=== PATIENT | female | born 1995 | race Caucasian/White ===

== ENCOUNTER 2017-01-26 09:56 | Outpatient (CLI) | payer SELFPAY ==
[2017-01-26 10:11] VITALS: BP 120/80
--- NOTE | 2017-01-26 11:15 | Ultrasound Report ---
ULTRASOUND OB LIMITED History: well being Technique: Transabdominal ultrasound with Doppler interrogation. Gestation: Single Position: Cephalic Amniotic Fluid: Normal IFTIKHAR = 8.8 cm Heart Rate: 142 BPM
--- NOTE | 2017-01-26 11:15 | Ultrasound Report ---
ULTRASOUND BIOPHYSICAL PROFILE: History: well being Technique: Transabdominal ultrasound with Doppler interrogation. 2 - breathing movements 2 - movements 2 - posture and tone 2 - Qualitative amniotic fluid volume 8 - TOTAL SCORE OF POSSIBLE 8 Heart Rate (bpm) 143
== END 2017-01-26 12:18 | disposition home or self-care (01) ==
LOC: TRG 09:56
PROVIDERS: ATTEND Obstetrics & Gynecology
DX: Z34.93 Encounter for supervision of normal pregnancy, unspecified, third trimester (principal); Z3A.39 39 weeks gestation of pregnancy
CPT/HCPCS: 59025; 76815; 76819

== ENCOUNTER 2017-02-01 09:32 | Inpatient (IN) | payer OTHER ==
[2017-02-01 10:50] LABS: Basophils % (Auto) 0.2 % (0.0-1.8); Eosinophils % (Auto) 0.7 % (0.0-4.3); Hematocrit 37.9 % (30.3-42.9); Hemoglobin 12.3 gm/dl (10.1-14.3); Mean Corpuscular HGB Conc 33 % (30-34); Mean Corpuscular Hemoglobin 30 pg (28-32); Mean Corpuscular Volume 93 fl (79-97); Platelet Count 121 K/mm3 (140-440); Red Blood Count 4.07 M/mm3 (3.65-5.03); Red Cell Distribution Width 14.1 % (13.2-15.2); White Blood Count 12.3 K/mm3 (4.5-11.0)
[2017-02-01] MEDS ORDERED: BRETHINE IVP PRN (11:32)
[2017-02-01] MEDS ORDERED: BRETHINE SUB-Q PRN (11:32)
[2017-02-01] MEDS ORDERED: ePHEDrine SULFATE IV PRN (11:32)
[2017-02-01] MEDS ORDERED: MINERAL OIL PO PRN (11:32)
[2017-02-01] MEDS ORDERED: NACL 0.9% 1000 ML 1,000 ML IV SCH (12:00)
[2017-02-01] MEDS ORDERED: PITOCin/NS 20 UNIT/1000ML DRIP 20 UNITS/1,000 ML BAG IV SCH (12:00)
[2017-02-01] MEDS ORDERED: XYLOCAINE 2% INFILTRATI ONE (12:00)
[2017-02-01] MEDS ORDERED: CERVIDIL VG ONE (12:32)
[2017-02-01] MEDS: LACTATED RINGERS 1,000 ML IV SCH ×2 (13:41→23:09)
--- NOTE | 2017-02-01 17:05 | History and Physical Report ---
History of Present Illness Date of examination: 02/01/17 Date of admission: 02/01/17 09:32 Chief complaint: 41 weeks, not in labor. History of present illness: Patient is 21 year old , EDC 01/25/17 at 41 weeks gestation who was admitted for labor induction for post dates. She denied any contraction, fluid leakage or bleeding per vagina. She reported good movement. She receives PN care at [facility]. Past History - Obstetrical History : 1 Medications and Allergies Allergies Allergy/AdvReac Type Severity Reaction Status Date / Time No Known Allergies Allergy Unverified 01/26/17 09:57 Home Medications Medication Instructions Recorded Confirmed Last Taken Type Multivitamin Tablet 1 tab PO DAILY 02/01/17 02/01/17 02/01/17 08:00 History 1 Active Meds: Active Medications Butorphanol Tartrate (Stadol) 2 mg IV Q2H PRN PRN Reason: Pain , Severe (7-10) Ephedrine Sulfate (Ephedrine Sulfate) 10 mg IV Q2M PRN PRN Reason: Hypotension Lactated Ringer's (Lactated Ringers) 1,000 mls @ 125 mls/hr IV DIRECT HUGH Last Admin: 02/01/17 13:41 Dose: 125 mls/hr Oxytocin/Sodium Chloride (Pitocin/Ns 20 Unit/1000ml Drip) 20 units in 1,000 mls @ 125 mls/hr IV DIRECT HUGH Influenza Virus Vaccine Quadrival (Fluarix Quad [id number](36 Mos+) 0.5 ml IM .ONCE ONE Stop: 02/02/17 12:01 Mineral Oil (Mineral Oil) 30 ml PO QHS PRN PRN Reason: Constipation Terbutaline Sulfate (Brethine) 0.25 mg SUB-Q ONCE PRN PRN Reason: Hyperstimulation/Hypertonicity Terbutaline Sulfate (Brethine) 0.25 mg IVP ONCE PRN PRN Reason: Hyperstimulation/Hypertonicity - Vital Signs Vital signs: Vital Signs Pulse BP Pulse Ox 105 H 120/83 100 02/01/17 10:09 02/01/17 10:09 02/01/17 10:09 Temp Pulse Resp BP Pulse Ox 102 H 120/83 100 02/01/17 10:09 02/01/17 10:09 02/01/17 10:09 - Physical Exam Cardiovascular: Normal S1, Normal S2 Lungs: Positive: Clear to auscultation Vulva: both: normal Deep Tendon Reflex Grade: Normal +2 - Obstetrical FHR: category 1, category 2 Uterine Contraction Monitor Mode: External Uterine Contraction Pattern: Absent Results Result Diagrams: 02/01/17 10:15 Abnormal lab results 02/01/17 Range/Units 10:15 WBC 12.3 H (4.5-11.0) K/mm3 Plt Count 121 L (140-440) K/mm3 [place] % (Auto) 8.0 H (0.0-7.3) % [place] # 1.0 H (0.0-0.8) K/mm3 Seg Neutrophils % 74.2 H (40.0-70.0) % Seg Neutrophils # 9.2 H (1.8-7.7) K/mm3 All other labs normal. Assessment and Plan - Patient Problems (1) Post term at 41 weeks gestation Current Visit: Yes Status: Acute Plan to address problem: Admit to L&D. Admitting labs. and toco monitoring. Cervidil induction. Risks and benefits of induction were discussed with the patient via a environmental services manager. She expressed understanding. (2) Elective induction of labor planned Current Visit: Yes Status: Acute
[2017-02-02] MEDS ORDERED: CERVIDIL VG ONE (02:45)
[2017-02-02] MEDS: LACTATED RINGERS 1,000 ML IV SCH ×2 (06:44→15:13)
--- NOTE | 2017-02-02 08:35 | Progress Note ---
Assessment and Plan - Patient Problems (1) Post term at 41 weeks gestation Current Visit: Yes Status: Acute (2) Elective induction of labor planned Current Visit: Yes Status: Acute Plan to address problem: Cervidil # 2 was placed this AM. FHT is CAT1. Will continue and toco monitoring. Subjective - Subjective Date of service: 02/02/17 Principal diagnosis: post dates Interval history: Patient is a 21 year old , EDC 01/25/17 at 41 weeks and 1 day gestation who was admitted for labor induction for post dates. On admission, she denied any contraction, fluid leakage or bleeding per vagina. She reported good movement. She receives PN care at [facility]. Cervidil #1 was placed yesterday evening. Cervidil #2 was placed at 4 AM today. She denies any pain or fluid leakage currently. tracing is CAT 1. [place]: Q3-5 mins irregular. Objective - Vital Signs Vital Signs: Vital Signs - 12hr 02/01/17 02/01/17 02/01/17 20:34 20:39 20:44 Temperature Pulse Rate 111 H 113 H 107 H Respiratory Rate Blood Pressure Blood Pressure [Left] O2 Sat by Pulse 97 97 99 Oximetry 02/01/17 02/01/17 02/01/17 20:49 20:54 23:10 Temperature 99.6 F Pulse Rate 118 H 107 H 105 H Respiratory 16 Rate Blood Pressure Blood Pressure 119/74 [Left] O2 Sat by Pulse 98 97 Oximetry 02/01/17 02/01/17 02/02/17 23:11 23:14 02:14 Temperature 99.5 F Pulse Rate 102 H 104 H 84 Respiratory 18 Rate Blood Pressure 119/74 Blood Pressure 119/70 [Left] O2 Sat by Pulse 97 Oximetry 02/02/17 02/02/17 02/02/17 02:16 02:17 04:14 Temperature Pulse Rate 82 86 98 H Respiratory Rate Blood Pressure 119/70 Blood Pressure [Left] O2 Sat by Pulse 96 96 Oximetry 02/02/17 02/02/17 02/02/17 04:17 06:40 06:41 Temperature 98.8 F Pulse Rate 99 H 99 H 99 H Respiratory 18 Rate Blood Pressure 111/60 Blood Pressure 111/60 [Left] O2 Sat by Pulse 94 Oximetry 02/02/17 02/02/17 07:10 07:20 Temperature 99.2 F Pulse Rate 100 H Respiratory 16 Rate Blood Pressure 105/65 Blood Pressure [Left] O2 Sat by Pulse Oximetry - Exam Cardiovascular: Normal S1, Normal S2 Lungs: Clear to auscultation Vulva: both: normal FHR: category 1 Uterine Contraction Monitor Mode: External Uterine Contraction Pattern: Irregular - Labs Labs: Abnormal Labs 02/01/17 10:15 WBC 12.3 H Plt Count 121 L [place] % (Auto) 8.0 H [place] # 1.0 H Seg Neutrophils % 74.2 H Seg Neutrophils # 9.2 H Laboratory Results - last 24 hr 02/01/17 02/01/17 02/01/17 10:15 10:15 10:15 WBC 12.3 H RBC 4.07 Hgb 12.3 Hct 37.9 MCV 93 MCH 30 MCHC 33 RDW 14.1 Plt Count 121 L Lymph % (Auto) 16.9 [place] % (Auto) 8.0 H Eos % (Auto) 0.7 Baso % (Auto) 0.2 Lymph # 2.1 [place] # 1.0 H Eos # 0.1 Baso # 0.0 Seg Neutrophils % 74.2 H Seg Neutrophils # 9.2 H RPR Nonreactive Blood Type O POSITIVE Antibody Screen Negative
[2017-02-02] MEDS ORDERED: Fluarix Quad 2017-2018(36 MOS+ IM ONE (12:00)
[2017-02-02] MEDS ORDERED: PITOCin/NS 30 UNIT/500ML 30,000 MILLIUNITS/500 ML BAG IV SCH (22:29)
[2017-02-03] MEDS: STADOL IV PRN ×2 (03:23→08:27)
[2017-02-03] MEDS: LACTATED RINGERS 1,000 ML IV SCH ×2 (06:07→07:17)
[2017-02-03] MEDS ORDERED: PITOCin/NS 30 UNIT/500ML 30 UNITS/500 ML BAG IV SCH (07:30)
[2017-02-03] MEDS ORDERED: STADOL IV PRN (10:30)
[2017-02-03] MEDS ORDERED: XYLOCAINE 2% INFILTRATI ONE ×2 (12:02→12:07)
[2017-02-03] MEDS ORDERED: CYTOTEC ONE (12:22)
[2017-02-03] MEDS ORDERED: CYTOTEC PR ONE (12:35)
[2017-02-03] MEDS ORDERED: DULCOLAX PR PRN (12:51)
[2017-02-03] MEDS ORDERED: TUCKS PAD TP PRN (12:51)
[2017-02-03] MEDS ORDERED: MILK OF MAGNESIA PO PRN (12:51)
[2017-02-03] MEDS ORDERED: BENADRYL PO PRN (12:51)
[2017-02-03] MEDS ORDERED: SODIUM CHLORIDE FLUSH SYRINGE 10 ML IV NR (13:00)
--- NOTE | 2017-02-03 13:05 | Procedure Note ---
OB Delivery Note - Delivery Date of Delivery: 02/03/17 (1155) Surgeon: LAKISHA GUY Estimated blood loss: other (400) - Vaginal Delivery presentation: vertex Delivery position: OA Intrapartum events: meconium (terminal) Delivery induction: cervidil Delivery augmentation: pitocin Delivery monitor: external FHT, external uterine Route of delivery: Delivery placenta: spontaneous Delivery cord: 3 umbilical vessels Episiotomy: none Delivery laceration: 1st degree Delivery repair: vicryl Anesthesia: local Delivery comments: of a live 7'7 male infant over 1st degree lacerations under IV pain control with Apgars of 8 and 9 at 1155 on 02/03/2017. Terminal meconium at delivery with spontaneous cry at , 's face held downward and wiped dry, and bulb suction of the nose and mouth. Infant placed on maternal abd/ chest, skin to skin contact. Spontaneous delivery of placenta complete and intact with Rey side presenting at 1200. IV access loss during pushing. 20U of Pitocin given IM, followed by 800mcg of Cytotec rectally. Fundus became firm and midline located 4 below the U. Lochia is scant. 1st degree left and right vaginal lacerations and 1st degree perineal laceration repaired with 2-[address]-1 under local 2% Lidocaine. Delayed cord clamping and cutting; cord cut by patient's sister in law. IV access re-established. Placenta discarded. - Infant A at 1 minute: 8 at 5 minutes: 9 Gender: Male (7'7)
[2017-02-03] MEDS ORDERED: NACL 0.9% 1000 ML 1,000 ML ONE (13:46)
[2017-02-03] MEDS: NORCO 5/325 PO PRN (18:15)
[2017-02-03] MEDS: MOTRIN PO SCH (23:08)
[2017-02-03] MEDS: COLACE PO SCH (23:08)
[2017-02-04 01:41] LABS: Hematocrit 24.2 % (30.3-42.9); Hemoglobin 7.9 gm/dl (10.1-14.3)
[2017-02-04] MEDS: NORCO 5/325 PO PRN ×3 (04:25→17:37)
[2017-02-04] MEDS: MOTRIN PO SCH (07:10)
[2017-02-04] MEDS ORDERED: PRENATAL VITAMIN PO SCH (10:00)
[2017-02-04] MEDS ORDERED: INFED IM ONE (10:01)
--- NOTE | 2017-02-04 10:04 | Progress Note ---
Assessment and Plan A: PP Day #1 Severe Anemia (Asymptomatic) P: Follow Routine Orders Ferrous Sulfate 325mg PO TID Infed 100mg IM x 1 dose Subjective - Subjective Date of service: 02/04/17 Principal diagnosis: post dates Patient reports: appetite normal, voiding normally, pain well controlled, flatus , ambulating normally, other (denies dizziness, HAs, visual changes, N&V, and extreme fatigue) [place]: doing well, bottle feeding Objective - Vital Signs Latest vital signs: Vital Signs Temp Pulse Resp BP BP Pulse Ox 02/04/17 09:07 18 101/53 02/04/17 08:05 97.6 F 94 H 18 101/53 02/04/17 00:38 99.4 F 108 H 18 107/58 02/03/17 20:00 98.4 F 108 H 18 118/64 02/03/17 17:20 98.2 F 118 H 18 117/69 100 02/03/17 12:58 97.2 F L 126 H 18 109/71 02/03/17 10:24 18 Intake and Output 02/03/17 02/04/17 02/04/17 22:59 06:59 14:59 Intake Total 360 240 120 Balance 360 240 120 Intake: Oral 120 Intake, Free Water 360 240 Other: Total, Intake Amount 120 # Voids Void 2 - Exam Breasts: Present: normal Cardiovascular: Present: Regular rate Lungs: Present: Clear to auscultation, Normal air movement Abdomen: Present: normal appearance, soft, normal bowel sounds Uterus: Present: normal, firm, fundal height below umbilicus Extremities: Present: normal - Labs Labs: Abnormal lab results 02/04/17 Range/Units 01:07 Hgb 7.9 L D (10.1-14.3) gm/dl Hct 24.2 L D (30.3-42.9) %
[2017-02-04] MEDS: COLACE PO SCH ×2 (11:44→21:45)
[2017-02-04] MEDS: FEOSOL PO SCH ×2 (17:36→21:45)
[2017-02-05] MEDS: MOTRIN PO SCH (04:35)
[2017-02-05] MEDS: NORCO 5/325 PO PRN (04:36)
--- NOTE | 2017-02-05 08:51 | Progress Note ---
Assessment and Plan A: PPD 2 - stable Severe Anemia - asymptomatic P: Discharge patient to home Continue iron therapy Follow up at [facility] for 6 weeks PP check Subjective - Subjective Date of service: 02/05/17 Principal diagnosis: post dates Patient reports: appetite normal, voiding normally, pain well controlled, ambulating normally [place]: doing well, nursing well, bottle feeding Objective - Vital Signs Latest vital signs: Vital Signs Temp Pulse Resp BP Pulse Ox 02/04/17 11:31 98.2 F 99 H 18 98/60 99 02/04/17 09:07 18 101/53 - Exam Breasts: Present: deferred, normal Cardiovascular: Present: Regular rate, Normal S1, Normal S2 Lungs: Present: Clear to auscultation, Normal air movement Abdomen: Present: normal appearance, soft Vulva: both: laceration/episiotomy (well approximated and healing well) Uterus: Present: normal, firm, fundal height below umbilicus Extremities: Present: other (2+ BLE) Deep Tendon Reflex Grade: Normal +2
--- NOTE | 2017-02-05 09:00 | Discharge Summary ---
Providers - Providers Date of Admission: 02/01/17 09:32 Date of discharge: 02/05/17 Attending physician: LILLY SIMS MD Primary care physician: LILLY SIMS MD Hospitalization Reason for admission: induction of labor, other (postdates) Delivery: (02/03/2017 @ 1155) Laceration: 1st degree (left and right vaginal lacerations - repaired) complications: none, other (severe anemia - INFeD 100mg IM x1 given) Discharge diagnosis: other (IUP at 41 weeks delivered) baby: male Hospital course: Complicated by anemia of puerperium Condition at discharge: Stable Disposition: DC-01 TO HOME OR SELFCARE Plan - Provider Discharge Summary Activity: routine, no sex for 6 weeks, no heavy lifting 4 weeks, no strenuous exercise Diet: routine Instructions: routine Additional instructions: [] Smoking cessation referral if applicable(refer to patient education folder for contact #) [] Refer to [facility] Booklet Call your doctor immediately for: * Fever > 100.5 * Heavy vaginal bleeding ( >1 pad per hour) * Severe persistent headache * Shortness of breath * Reddened, hot, painful area to leg or breast * Drainage or odor from incision. * Keep incision clean and dry at all times and follow doctor's instructions regarding bathing/showering - Follow up plan Follow up: LILLY SIMS MD [Primary Care Provider] - 6 Weeks (Follow up at [facility] for 6 weeks check)
[2017-02-05 11:15] VITALS: BP 106/62
== END 2017-02-05 10:55 | disposition home or self-care (01) | DRG 775 ==
LOC: LD 09:32 → OB 02-03 15:10
PROVIDERS: ADMIT Obstetrics & Gynecology; ATTEND Obstetrics & Gynecology
PROC: 3E0234Z Introduction of Serum, Toxoid and Vaccine into Muscle, Percutaneous Approach (ICD-10-PCS; 2017-02-02)
PROC: 10E0XZZ Delivery of Products of Conception, External Approach (ICD-10-PCS; principal; 2017-02-03)
PROC: 0HQ9XZZ Repair Perineum Skin, External Approach (ICD-10-PCS; 2017-02-03)
PROC: 3E0P7VZ Introduction of Hormone into Female Reproductive, Via Natural or Artificial Opening (ICD-10-PCS; 2017-02-03)
DX: O48.0 Post-term pregnancy (principal); D64.9 Anemia, unspecified; O70.0 First degree perineal laceration during delivery; O99.03 Anemia complicating the puerperium; O77.0 Labor and delivery complicated by meconium in amniotic fluid; Z3A.41 41 weeks gestation of pregnancy; Z37.0 Single live birth; Z23 Encounter for immunization
CPT/HCPCS: 36415; 85014; 85018; 85025; 86592; 86850; 86900; 86901; 90686; 99211; G0463; J0595; J1750; J2590; J7030; J7120